=== PATIENT | female | born 1995 | race Caucasian/White ===

== ENCOUNTER 2020-02-09 00:36 | Outpatient (CLI) | payer OTHER, SELFPAY ==
[2020-02-09 18:58] LABS: SARS-CoV-2 RNA PCR Negative
== END 2020-02-09 00:37 | disposition home or self-care (01) ==
LOC: ANHCOVIDDT 00:37
PROVIDERS: PCP Family Medicine; Visit Provider Obstetrics & Gynecology
DX: Z01.812 Encounter for preprocedural laboratory examination (principal); Z20.828 Contact with and (suspected) exposure to other viral communicable diseases
CPT/HCPCS: 87635; C9803; U0003

== ENCOUNTER 2020-02-10 00:49 | Day surgery (SDC) | payer OTHER, SELFPAY ==
[2020-02-08 11:28] VITALS: BMI 26.6
[2020-02-10 11:23] VITALS: BP 114/79; PULSE 86; RESP 18; TEMP 36.8; O2SAT 100
[2020-02-10 11:28] VITALS: BMI 27.1
--- NOTE | 2020-02-10 11:44 | PM.IMHP ---
H&P: HPI History of Present Illness Chief complaint: Missed AB Narrative: Francisca Rodriguez is a 25 year old female presents with missed for suction curettage. Had ultrasound at 6 weeks which showed cardiac activity in uterine abnormality. At this point should be 12 weeks though earlier this week had ultrasound showed 9 week with no cardiac activity. Review of Systems Review of Systems: All systems reviewed & are unremarkable except as noted in HPI and below PMFSH Social History Social History Gender identity (if verbalized by the patient): Female Meds Home Medications and Allergies Home Medications Medication Instructions Recorded Confirmed Type ampicillin 500 mg PO Q6H 02/08/20 02/08/20 History sertraline 50 mg PO DAILY 02/08/20 02/08/20 History Allergies Allergy/AdvReac Type Severity Reaction Status Date / Time No Known Allergies Allergy Verified 02/08/20 11:23 Vital Signs Vital Signs - 24 hr 02/10/20 11:23 Temperature 36.8 C Pulse Rate 86 Respiratory Rate 18 Blood Pressure 114/79 Pulse Oximetry 100 Exam Const: General: no acute distress Resp: Auscultation: clear to auscultation bilaterally Cardio: Rate: regular rate Rhythm: regular rhythm GI: GI Palp: Yes Soft to palpation : Other: Uterus 8-10 week size. Assessment and Plan Assessment and plan (1) Missed : Code(s): O02.1 - Missed Status: Acute Additional Plan Suction curettage.
[2020-02-10] MEDS: LACTATED RINGERS 1,000 ML 30 ML IV CONT (11:45)
--- NOTE | 2020-02-10 12:01 | P.PNAN_ITS ---
Anes - Initial Pre Proc Eval Procedure: Operation Date: 02/10/20 12:45 Proposed Procedures p Suction Dilation and Curettage - Samy Chaidez MD Date/Time: 02/10/20 12:01 Surgeon: Samy Chaidez MD Pre Op Diagnosis: Missed AB Patient Data Age: 25 Gender: F Height: 5 ft 7 in Weight: 78.4 kg Last Vital Signs Temp 36.8 C 02/10/20 11:23 Pulse 86 02/10/20 11:23 Resp 18 02/10/20 11:23 BP 114/79 02/10/20 11:23 Pulse Ox 100 02/10/20 11:23 Allergies Allergy/AdvReac Type Severity Reaction Status Date / Time No Known Allergies Allergy Verified 02/08/20 11:23 Home Medications Medication Instructions Recorded Confirmed Type ampicillin 500 mg PO Q6H 02/08/20 02/08/20 History sertraline 50 mg PO DAILY 02/08/20 02/08/20 History ibuprofen 800 mg PO TID PRN #20 tablet 02/10/20 Rx Patient hx anesthesia problems: none Family hx anesthesia problems: none [facility] Past Medical History Medical History (Updated 02/10/20 @ 12:02 by Sandor Jha MD) Anxiety Social History Social History Gender identity (if verbalized by the patient): Female Anes - Eval Final PreProcedure Day of Procedure 02/10/20 12:01 Patient weight: overweight Heart: regular rate and rhythm Lungs: clear to auscultation Airway: Mallampati scale class II Neurological: alert and oriented Last oral intake: >/= 8 hours ASA classification: II Emergent: no Anesthetic plan: proceed Anesthesia type and monitoring: general GIVS Informed Consent: The patient's anesthetic plan and its attendant risks and benefits were discussed with the patient/family/POA. Questions were solicited and answers provided to the satisfaction of the patient/family/POA.
[2020-02-10] MEDS: KETOROLAC 30 MG/ML VIAL (*BKC) IV PUSH (12:38)
--- NOTE | 2020-02-10 12:51 | PM.OP ---
Procedure Note - Brief Procedure Note - Brief Date of procedure: 02/10/20 Pre-op diagnosis: Missed AB Post-op diagnosis: same Procedure performed: Suction curettage Description of procedure: Patient prepped in usual manner for this procedure. Cervix dilated to allow the 9mm suction curette replaced. Section current removed a moderate amount of products of conception. There is no significant bleeding at this point. This P at this point the procedure was considered terminated. Anesthesia: GLMA Surgeon: Samy Chaidez MD Estimated blood loss (mL): 50 Drains: No Packing: No Pathology: yes Complications: No immediate complications Condition: stable Disposition: PACU Findings: Moderate amount of products of conception.
[2020-02-10 12:55] VITALS: BP 101/56; PULSE 74; RESP 20
[2020-02-10 13:25] VITALS: BP 119/55; PULSE 76; RESP 12
[2020-02-10 13:55] VITALS: BP 121/71; PULSE 74; RESP 16
== END 2020-02-10 14:16 | disposition home or self-care (01) ==
PROVIDERS: PCP Family Medicine; Visit Provider Obstetrics & Gynecology
PROC: (CPT 59820; principal; 2020-02-10 12:45)
DX: O02.1 Missed abortion (principal)
CPT/HCPCS: 59820; 36415; 85461; 88305; A9270; J1885; J2250; J2704; J3010; J7030; J7120

== ENCOUNTER 2021-08-28 15:02 | Outpatient (CLI) | payer OTHER, SELFPAY ==
--- NOTE | ~2021-08-28 | US_ITS ---
US OB <= 14 weeks fetus DATE: 08/28/2021 15:41 INDICATION: Irregular menstruation TECHNIQUE: Real-time imaging, color flow imaging, Doppler COMPARISON: None FINDINGS: The uterus measures 9.0 cm height, 4.0 cm AP and 6.0 cm transverse dimension. There is a li ve single intrauterine gestation, with normal surrounding hyperechogenicity consistent with decidual reaction. A pole is identified with heart rate of 130 bpm. Annex-rump length averages 0.9 cm, consistent with 6 weeks 6 days +/- 4 days estimated gestational ag e and MICHAEL of 04/17/2022. Left ovary measures 2.5 x 1.5 x 2.5 cm, with vascular flow. Right ovary is not as well demonstrated, measures approximately 1.6 x 1.8 cm, with vascular flow. No pelvic mass or abnormal free pelvic fluid collection is noted. IMPRESSION: Early intrauterine gestation, estimated gestational age 6 weeks 6 days +/- 4 days; MICHAEL: Reviewed, dictated and finalized at [facility]. Reviewed, dictated and finalized at [facility]. [employer] IMPRESSION: Early intrauterine gestation, estimated gestational age 6 weeks 6 d ays +/- 4 days; MICHAEL: 04/17/2022
== END 2021-08-28 15:03 | disposition home or self-care (01) ==
LOC: ANHIMG 15:10
PROVIDERS: Visit Provider Obstetrics & Gynecology
DX: Z34.91 Encounter for supervision of normal pregnancy, unspecified, first trimester (principal); Z3A.01 Less than 8 weeks gestation of pregnancy
CPT/HCPCS: 76801

== ENCOUNTER 2021-08-31 12:02 | Emergency (ER) | payer OTHER, SELFPAY ==
--- NOTE | ~2021-08-31 | US_ITS ---
EXAMINATION: US renal BI DATE: 08/31/2021 15:43 INDICATION: Kidney stone. Pain. TECHNIQUE: Multiple ultrasound grayscale images of the kidneys were obtained. COMPARISON: None. FINDINGS: The right kidney measures 10.9 x 5.8 x 5.2 cm. The left kidney measures 12.4 x 6.2 x 6.1 cm. The kidn eys demonstrate normal parenchymal echogenicity. There is no hydronephrosis. The bladder is not well distended. IMPRESSION: 1. Normal kidneys. No hydronephrosis. Reviewed, dictated and finalized at [facility]. [employer]
[2021-08-31 12:10] VITALS: PULSE 87; RESP 18; TEMP 36.7; O2SAT 100
[2021-08-31 16:21] LABS: Add Urine Microscopic? YES; Appearance Urine Clear (Clear); Bilirubin Urine Negative (Negative); Blood Urine 1+ (Negative); Color Urine Yellow (Yellow); Glucose Urine UA Negative (Negative); Ketones Urine Negative (Negative); Leukocyte Esterase Ur Negative LEU/UL (Negative); Nitrate Urine Negative (Negative); Protein Urine Negative (Negative); Specific Grav Ur 1.016 (1.001-1.035); Squamous Epithelial Cell Urine Many /hpf (Few); Urobilinogen Urine Negative mg/dL (<2.0); WBC Urine 0-3 /hpf
--- NOTE | 2021-08-31 17:29 | ED.GENADULT ---
HPI - General Adult General Chief complaint: Back Pain/Injury Stated complaint: back pain, kidney stones? Time Seen by Provider: 08/31/21 14:22 Source: patient Mode of arrival: ambulatory Limitations: no limitations History of Present Illness HPI narrative: Patient is 26-year-old female G3, P1 7 weeks , presents with chief complaint of right flank pain over the past week. Patient reports that she was seen at the urgent care and treated for urinary tract infection after a small amount of blood being noted in her urine analysis. She was called and told the urine culture was negative for bacterial growth so she contacted her PERSONAL INVESTMENT ADVISER and was instructed to come to the emergency department to rule out kidney stone. Patient reports she has had compartment or uterine . Patient denies vaginal bleeding or discharge. Patient denies dysuria or notable hematuria. Patient denies fever and chills. She reports occasional nausea and vomiting morning which has been associated with her . Patient denies fevers and chills, shortness of breath or chest pain. Patient denies history of kidney stones. Related Data Home Medications Medication Instructions Recorded Confirmed ampicillin 500 mg PO Q6H 02/08/20 02/10/20 sertraline 50 mg PO DAILY 02/08/20 02/10/20 Allergies Allergy/AdvReac Type Severity Reaction Status Date / Time No Known Allergies Allergy Verified 08/31/21 14:05 Review of Systems Review of Systems: CONSTITUTIONAL: Denies fever, chills, or sweats. EYES: Denies visual changes, redness, or discharge. ENT: Denies rhinorrhea, congestion, sore throat, or otalgia. CARDIOVASCULAR: Denies chest pain, palpitations, or edema. RESPIRATORY: Denies cough or dyspnea. GASTROINTESTINAL: Denies abdominal pain, nausea, vomiting, or diarrhea. GENITOURINARY: Reports right flank pain denies dysuria or hematuria. SKIN: Denies rash or itching. MUSCULOSKELETAL: Denies back pain, joint pain, or myalgia. NEUROLOGIC: Denies headache, numbness, dizziness, or weakness. PSYCHIATRIC: Denies anxiety or depression. [facility] Past Medical History Medical History (Updated 08/31/21 @ 17:35 by Sarah Oro PA-C) Anxiety Social History Social History Gender identity (if verbalized by the patient): Female Exam Narrative: GENERAL: Well-appearing, well-nourished, and in no acute distress. Nontoxic in appearance. Patient smiling and talking normally. Patient ambulating without issue. Patient not vomiting or showing any signs of discomfort. HEAD: Normocephalic, atraumatic. EYES: PERRLA and EOMI. CHEST: Tenderness to palpation of the right flank area. Clear to auscultation. No respiratory distress. No wheezes rales or rhonchi HEART: Regular rate and rhythm. No murmur heard. Normal peripheral pulses. ABDOMEN: Soft, nontender, nondistended, normal active bowel sounds. EXTREMITIES: Normal range of motion. No edema. SKIN: Warm, dry, no rash. NEURO: No focal deficits. Alert and oriented x3. PSYCH: Normal mood and affect. Course Vital Signs Vital signs: Vital Signs Temperature 98.0 F 08/31/21 12:10 Pulse Rate 87 08/31/21 12:10 Respiratory Rate 18 08/31/21 12:10 Pulse Oximetry 100 08/31/21 12:10 Temperature 98.0 F 08/31/21 12:10 Pulse Rate 87 08/31/21 12:10 Respiratory Rate 18 08/31/21 12:10 Pulse Oximetry 100 08/31/21 12:10 Medical Decision Making MDM Narrative Medical decision making narrative: Patient declined nausea and pain medications in emergency department. Patient has very small amount of blood noted in her urine. Patient denies dysuria. Patient denies noting blood with wiping. Patient reports she has had compartment a uterine and denies any pelvic cramping or vaginal bleeding. Consult with Dr. Patten PERSONAL INVESTMENT ADVISER on-call for patient's PERSONAL INVESTMENT ADVISER Dr. Chaidez. She states the patient should not have KUB or CT abdomen pelvis but instead a renal ultrasound
[2021-08-31 17:55] VITALS: BP 130/76; PULSE 85; RESP 18; O2SAT 100
== END 2021-08-31 17:57 | disposition home or self-care (01) ==
PROVIDERS: Physician Assistant; Emergency Provider Family Medicine
DX: O26.891 Other specified pregnancy related conditions, first trimester (principal); M54.9 Dorsalgia, unspecified; O99.341 Other mental disorders complicating pregnancy, first trimester; F41.9 Anxiety disorder, unspecified
CPT/HCPCS: 76775; 81001; 99283; 99284

== ENCOUNTER 2021-12-29 13:28 | Outpatient (CLI) | payer OTHER, SELFPAY | END 2021-12-29 13:29 | disposition home or self-care (01) | LOC: ANHLAB 13:29 | PROVIDERS: Visit Provider Obstetrics & Gynecology | DX: N39.0 Urinary tract infection, site not specified (principal) | CPT/HCPCS: 87086; 87088 ==

== ENCOUNTER 2022-02-05 09:54 | Outpatient (CLI) | payer OTHER, SELFPAY ==
[2022-02-05 10:28] LABS: Basophils Absolute Auto 0.1 K/mm3 (0.0-0.1); Basophils Percent Auto 0.5 % (0.2-1.2); Eosinophils Absolute Auto 0.1 K/mm3 (0-0.3); Eosinophils Percent Auto 0.6 % (0-4.4); Hematocrit 31.9 % (37.0-47.0); Hemoglobin 9.8 g/dL (12.0-15.0); Immature Granulocyte Absolute 0.56 K/mm3 (0.00-0.031); Immature Granulocyte Percent A 3.4 % (0-0.5); Lymphocytes Percent Auto 18.6 % (18.3-44.2); Mean Corpuscular HGB Conc 30.7 g/dl (32-36); Mean Corpuscular Hemoglobin 25.5 pg (26-34); Mean Corpuscular Volume 82.9 fl (80-100); Monocytes Absolute Auto 1.8 K/mm3 (0.1-0.6); Monocytes Percent Auto 10.8 % (2.6-8.5); Neutrophils Percent Auto 66.1 % (45.5-73.1); Platelet Count Result 269 k/mm3 (150-375); Red Blood Count 3.85 M/mm3 (4.2-5.4); Red Cell Distribution Width 14.6 % (11.5-14.5); White Blood Count 16.7 K/mm3 (4.5-10.0)
[2022-02-05 11:15] LABS: HIV 1/2 Ab P24 Ag Result Negative (Negative)
[2022-02-05 11:39] LABS: Glucose 1 Hour PP 50gm Dose 145 mg/dL
== END 2022-02-05 09:55 | disposition home or self-care (01) ==
LOC: ANHLAB 09:56
PROVIDERS: Visit Provider Obstetrics & Gynecology
DX: Z34.90 Encounter for supervision of normal pregnancy, unspecified, unspecified trimester (principal)
CPT/HCPCS: 36415; 82947; 85025; 86703; G0432

== ENCOUNTER 2022-02-22 07:15 | Outpatient (CLI) | payer OTHER, SELFPAY ==
[2022-02-22 08:12] LABS: Glucose Fasting Gestational 101 mg/dL (>/=95)
[2022-02-22 10:25] LABS: Glucose 1 Hour Gest 134 mg/dL (>/=180)
[2022-02-22 10:42] LABS: Glucose 2 Hour Gest 143 mg/dL (>/= 155)
[2022-02-22 11:16] LABS: Ferritin 4.93 ng/mL (6.24-137)
[2022-02-22 11:48] LABS: Glucose 3 Hour Gest 79 mg/dL (>/=140)
== END 2022-02-22 07:16 | disposition home or self-care (01) ==
PROVIDERS: Visit Provider Obstetrics & Gynecology
DX: O99.810 Abnormal glucose complicating pregnancy (principal); Z3A.31 31 weeks gestation of pregnancy
CPT/HCPCS: 36415; 82728; 82951; 82952

== ENCOUNTER 2022-03-19 16:34 | Outpatient (RCR) | payer OTHER, SELFPAY ==
[2022-03-19 18:12] VITALS: BP 120/70; PULSE 111
== END 2022-04-13 14:57 | disposition home or self-care (01) ==
LOC: ANHOBOP 16:34
PROVIDERS: Visit Provider Obstetrics & Gynecology
DX: O36.8130 Decreased fetal movements, third trimester, not applicable or unspecified (principal); Z3A.35 35 weeks gestation of pregnancy
CPT/HCPCS: 59025

== ENCOUNTER 2022-04-13 03:23 | Inpatient (IN) | payer OTHER, SELFPAY ==
[2022-04-13] VITALS (86 sets, daily range): BP systolic 77–157; BP diastolic 46–131; PULSE 69–125; RESP 20; TEMP 36.6–37.3; O2SAT 92–100; BMI 33.8
--- OUTSIDE RECORDS SUMMARY | 2022-04-13 03:40 | XMS_ITS ---
:1995 Author Care Team Providers Name Role Phone BOOM CHAMBERS MD Primary Care Provider [phone] Allergies Code Code System Name Reaction Severity Status Onset NKDA ? Notes: Some allergies listed in Docume nts: #[id number], #[id number] could not be added to this patient's chart. Please review thes e documents and add these allergies to the patient's chart manually as needed. Medications Name Status Start Date Stop Date ? ? acyclovir 400 mg tablet Unknown ? Not avai lable amitriptyline 25 mg tablet Completed ? 06/16 amoxicillin 500 mg capsule Completed ? 01/31 TK 1 C PO BID WF OR MILK amoxicillin 875 mg-potassium clavulanate 125 mg tablet Completed ? 10/16/2016 ampicillin 500 mg capsule Completed ? 2019 TK ONE C PO Q 6 H FOR 7 DAYS clomiphene citrate 50 mg tablet Unknown ? Not available Take 1 tablet every day by oral route. take days 3-7 of cycle/intercourse days 12,14,16 COVID-19 test specimen collection Active ? Not available TEST DIRECTED TODAY fluoxetine 10 mg capsule Completed ? 020 fluoxetine 20 mg capsule Active ? Not fadumo ilable TAKE 1 CAPSULE BY MOUTH EVERY DAY fluticasone propionate 50 mcg/actuation nasal Completed ? 10/16/2016 spray,suspension Lidocaine Viscous 2 % mucosal solution Completed ? 02/01/2020 SWISH AND SPIT 5 ML PO Q 4 H PRF TOOTH PAIN loratadine 10 mg tablet Completed ? 10/19/19 20 meloxicam 15 mg tablet Completed ? 0 TK 1 T PO D WF OR MILK. DO NOT TK ANY IBUPROFEN OR ALEVE WITH T HIS MEDICINE metoclopramid
--- OUTSIDE RECORDS SUMMARY | 2022-04-13 03:40 | XMS_ITS ---
:1995 Author Care Team Providers Name Role Phone BOOM CHAMBERS MD Primary Care Provider [phone] Allergies Code Code System Name Reaction Severity Status Onset NKDA ? Notes: Some allergies listed in Docume nts: #[id number], #[id number] could not be added to this patient's chart. Please review thes e documents and add these allergies to the patient's chart manually as needed. Medications Name Status Start Date Stop Date ? ? acyclovir 400 mg tablet Unknown ? Not avai lable amitriptyline 25 mg tablet Completed ? 06/16 amoxicillin 500 mg capsule Active ? Not a vailable TK 1 C PO Q 8 H amoxicillin 875 mg-potassium clavulanate 125 mg tablet Completed ? 10/16/2016 ampicillin 500 mg capsule Active ? Not av ailable cephalexin 500 mg capsule Completed ? 2020 TAKE 1 CAPSULE PO EVERY 12 HOURS FOR 10 DAYS clomiphene citrate 50 mg tablet Completed ? 02/01/2020 TAKE 1 TABLET BY MOUTH EVERY DAY COVID-19 test specimen collection Active ? Not available TEST DIRECTED TODAY fluconazole 150 mg tablet Completed ? 2020 TK 1 T PO Q WEEK fluoxetine 10 mg capsule Completed ? 020 fluoxetine 20 mg capsule Completed ? 021 TAKE 1 CAPSULE BY MOUTH EVERY DAY fluticasone propionate 50 mcg/actuation nasal Completed ? 10/16/2016 spray,suspension Lidocaine Viscous 2 % mucosal solution Completed ? 02/01/2020 SWISH AND SPIT 5 ML PO Q 4 H PRF TOOTH PAIN loratadine 10 mg tablet Completed ? 10/19/19 20 meloxicam 15 mg tablet Completed ? 0
--- NOTE | 2022-04-13 03:45 | LDADM ---
This patient, Francisca Perez, was admitted to Labor/Delivery/Recovery 105 on 04/13/22 at 03:23. Plans for labor, pain management and were discussed with patient. Patient/family oriented to hospital policies and general routines including ID bracelet, bed and alarms, visiting hours, pain management, procedures, bathroom and other care routines, personal items, smoking policy, room service/diet and guest tray routines, infant security routines, and visiting hours. Patient/Family are encouraged to report perceived risks to care and to ask questions if they do not understand what they are told or what they should do. See OBIX for further documentation.
[2022-04-13 04:36] LABS: Basophils Absolute Auto 0.1 K/mm3 (0.0-0.1); Basophils Percent Auto 0.3 % (0.2-1.2); Eosinophils Absolute Auto 0.1 K/mm3 (0-0.3); Eosinophils Percent Auto 0.8 % (0-4.4); Hematocrit 28.7 % (37.0-47.0); Hemoglobin 8.2 g/dL (12.0-15.0); Immature Granulocyte Absolute 0.35 K/mm3 (0.00-0.031); Immature Granulocyte Percent A 2.2 % (0-0.5); Lymphocytes Absolute Auto 2.92 K/mm3 (0.9-3.2); Lymphocytes Percent Auto 18.5 % (18.3-44.2); Mean Corpuscular HGB Conc 28.6 g/dl (32-36); Mean Corpuscular Hemoglobin 20.7 pg (26-34); Mean Corpuscular Volume 72.3 fl (80-100); Mean Platelet Volume 10.8 fl (7.4-10.4); Monocytes Absolute Auto 1.6 K/mm3 (0.1-0.6); Monocytes Percent Auto 9.8 % (2.6-8.5); Neutrophils Absolute Auto 10.8 K/mm3 (1.3-6.7); Neutrophils Percent Auto 68.4 % (45.5-73.1); Nucleated Red Blood Cells Perc 0.3 % (0.0-0.2); Platelet Count Result 277 k/mm3 (150-375); Red Blood Count 3.97 M/mm3 (4.2-5.4); Red Cell Distribution Width 18.3 % (11.5-14.5); White Blood Count 15.8 K/mm3 (4.5-10.0)
[2022-04-13 04:48] LABS: Hypochromasia 1+ (NORMAL); Microcytosis 1+ (NORMAL); Platelet Estimate Adequate (Adequate)
[2022-04-13 04:49] LABS: Stomatocytes 1+ (NORMAL)
[2022-04-13 04:52] LABS: Amphetamine Screen Urine Negative (Negative); Barbiturate Screen Urine Negative (Negative); Benzodiazepines Screen Urine Negative (Negative); Cannabinoid Screen Urine Positive (Negative); Cocaine Screen Urine Negative (Negative); Methadone Screen Urine Negative (Negative); Opiate Screen Urine Negative (Negative); Phencyclidine Screen Urine Negative (Negative)
[2022-04-13] MEDS: LACTATED RINGERS 1,000 ML 125 ML IV CONT (04:58)
[2022-04-13] MEDS: OXYTOCIN 30 UNITS/NS 500 ML 30 UNITS/500 ML BAG IV CONT (04:58)
[2022-04-13 06:53] LABS: Rapid Plasma Reagin Non-Reactive (NonReactive)
--- NOTE | 2022-04-13 07:17 | WPDANESEPPF ---
Anes - Initial Pre Proc Eval Date/Time: 04/13/22 07:17 Surgeon: Samy Chaidez MD Pre Op Diagnosis: Leaking Patient Data Age: 27 Gender: F Height: 1.7 m Weight: 98 kg Last Vital Signs Temp 37.0 C 04/13/22 06:11 Pulse 110 H 04/13/22 07:11 BP 139/53 L 04/13/22 07:11 Pulse Ox 99 04/13/22 06:57 O2 Del Method Room Air 04/13/22 04:05 Allergies Allergy/AdvReac Type Severity Reaction Status Date / Time No Known Allergies Allergy Verified 04/13/22 04:34 Home Medications Medication Instructions Recorded Confirmed Type vitamins-iron fumarate 65 1 tablet PO DAILY 12/19/21 04/13/22 History mg iron-folic acid 1 mg tablet acyclovir 400 mg tablet 400 mg PO BID #60 tabs 03/12/22 04/13/22 Rx sertraline 50 mg tablet 50 mg PO DAILY #90 tabs 03/26/22 04/13/22 Rx Laboratory Tests 04/13/22 04/13/22 04/13/22 04:02 04:02 04:02 WBC 15.8 K/mm3 H K/mm3 (4.5-10.0) RBC 3.97 M/mm3 L M/mm3 (4.2-5.4) Hgb 8.2 g/dL L g/dL (12.0-15.0) Hct 28.7 % L % (37.0-47.0) MCV 72.3 fl L fl (80-100) MCH 20.7 pg L pg (26-34) MCHC 28.6 g/dl L g/dl (32-36) RDW 18.3 % H % (11.5-14.5) Plt Count 277 k/mm3 k/mm3 (150-375) MPV 10.8 fl H fl (7.4-10.4) Immature Gran % (Auto) 2.2 % H % (0-0.5) Neut % (Auto) 68.4 % % (45.5-73.1) Lymph % (Auto) 18.5 % % (18.3-44.2) Centre % (Auto) 9.8 % H % (2.6-8.5) Eos % (Auto) 0.8 % % (0-4.4) Baso % (Auto) 0.3 % % (0.2-1.2) Lymph # (Auto) 2.92 K/mm3 K/mm3 (0.9-3.2) Centre # (Auto) 1.6 K/mm3 H K/mm3 (0.1-0.6) Eos # (Auto) 0.1 K/mm3 K/mm3 (0-0.3) Baso # (Auto) 0.1 K/mm3 K/mm3 (0.0-0.1) Abs Immat Gran (auto) 0.35 K/mm3 H K/mm3 (0.00-0.031) Absolute Neuts (auto) 10.8 K/mm3 H K/mm3 (1.3-6.7) Absolute Nucleated RBC 0.0 K/mm3 K/mm3 (0.0-0.012) Nucleated RBC % 0.3 % H % (0.0-0.2) Platelet Estimate Adequate (Adequate) Hypochromasia 1+ (NORMAL) Microcytosis 1+ (NORMAL) Stomatocytes 1+ (NORMAL) Urine Opiates Screen Urine Methadone Screen Ur Barbiturates Screen Ur Phencyclidine Scrn Ur Amphetamine Screen U Benzodiazepines Scrn Urine Cocaine Screen U Cannabinoids Screen RPR Non-reactive (NonReactive) Blood Type B Positive Antibody Screen Negative 04/13/22 04:02 WBC RBC Hgb Hct MCV MCH MCHC RDW Plt Count MPV Immature Gran % (Auto) Neut % (Auto) Lymph % (Auto) Centre % (Auto) Eos % (Auto) Baso % (Auto) Lymph # (Auto) Centre # (Auto) Eos # (Auto) Baso # (Auto) Abs Immat Gran (auto) Absolute Neuts (auto) Absolute Nucleated RBC Nucleated RBC % Platelet Estimate Hypochromasia Microcytosis Stomatocytes Urine Opiates Screen Negative (Negative) Urine Methadone Screen Negative (Negative) Ur Barbiturates Screen Negative (Negative) Ur Phencyclidine Scrn Negative (Negative) Ur Amphetamine Screen Negative (Negative) U Benzodiazepines Scrn Negative (Negative) Urine Cocaine Screen Negative (Negative) U Cannabinoids Screen Positive A (Negative) RPR Blood Type Antibody Screen Patient hx anesthesia problems: none Family hx anesthesia problems: none Results Review: All pre-operative results and documents have been reviewed as part of the pre-operative evaluation. [facility] Past Medical History Medical History Abnormal glucose tolerance in
--- NOTE | 2022-04-13 07:42 | PM.IMHP ---
H&P: HPI History of Present Illness Date/Time: 04/13/22 07:42 Chief Complaint: leakage of fluid since 1230a Narrative: Francisca is a 27yo @ 39.3wks (MICHAEL 04/17/22) who presented to L&D w/ leakage of clear fluid since 1230a. She reports cramping pains. She denies bleeding. Reports good movement. Her is complicated by: - HSV on ppx; no lesions - Anemia - Elevated 1hr glucose; normal 3 hour - Anxiety on zoloft Review of Systems Review of Systems: All systems reviewed & are unremarkable except as noted in HPI and below PMFSH Past Medical History Medical History Abnormal glucose tolerance in Anxiety Constipation Encounter for screening examination for sexually transmitted disease Herpes HSV 2 Incomplete miscarriage 02/10/20 suction d&c Migraines OTC PRN UTI (urinary tract infection) Surgical History Surgical History Hx of tonsillectomy 2003 Family History Family History Other Diabetes mellitus maternal uncle Grandparent Acute myocardial infarction maternal grandmother paternal grandmother Breast cancer paternal grandmother Diabetes mellitus Son Autism Social History Social History Smoking packs per day: 0.5 Smoking cigarettes per day: 10.0 Years smoked: 10 Smoking pack-years: 5.00 Smoking status: Current every day smoker Tobacco type: cigarettes Second hand tobacco smoke exposure: Yes Substance use: current Last use: last time 03/20/22 Gender identity (if verbalized by the patient): Female Spiritual care concerns: No Meds Home Medications and Allergies Home Medications Medication Instructions Recorded Confirmed Type vitamins-iron fumarate 65 1 tablet PO DAILY 12/19/21 04/13/22 History mg iron-folic acid 1 mg tablet acyclovir 400 mg tablet 400 mg PO BID #60 tabs 03/12/22 04/13/22 Rx sertraline 50 mg tablet 50 mg PO DAILY #90 tabs 03/26/22 04/13/22 Rx Allergies Allergy/AdvReac Type Severity Reaction Status Date / Time No Known Allergies Allergy Verified 04/13/22 04:34 Vital Signs Vital Signs - 24 hr 04/13/22 04:29 04/13/22 04:31 04/13/22 04:45 Temperature Pulse Rate 119 H 113 H 113 H Blood Pressure 148/85 H 136/85 134/66 Pulse Oximetry Oxygen Delivery 04/13/22 05:00 04/13/22 05:01 04/13/22 05:15 Temperature 99.2 F Pulse Rate 109 H 104 H Blood Pressure 131/72 132/82 Pulse Oximetry Oxygen Delivery 04/13/22 05:30 04/13/22 05:47 04/13/22 06:01 Temperature Pulse Rate 106 H 108 H 110 H Blood Pressure 122/70 135/58 L 151/54 H Pulse Oximetry Oxygen Delivery 04/13/22 06:11 04/13/22 06:42 04/13/22 06:46 Temperature 98.6 F Pulse Rate 124 H 112 H Blood Pressure 156/76 H 157/112 H Pulse Oximetry 100 Oxygen Delivery 04/13/22 06:47 04/13/22 06:51 04/13/22 06:52 Temperature Pulse Rate 110 H 114 H Blood Pressure 139/59 L 136/92 H Pulse Oximetry 100 100 Oxygen Delivery 04/13/22 06:53 04/13/22 06:54 04/13/22 06:56 Temperature Pulse Rate 109 H 118 H 119 H Blood Pressure 110/79 104/65 121/55 L Pulse Oximetry Oxygen Delivery 04/13/22 06:57 04/13/22 06:59 04/13/22 07:01 Temperature Pulse Rate 114 H 118 H Blood Pressure 139/55 L 130/46 L Pulse Oximetry 99 Oxygen Delivery 04/13/22 07:05 04/13/22 07:11 04/13/22 07:21 Temperature Pulse Rate 115 H 110 H 120 H Blood Pressure 121/61 139/53 L 145/62 H Pulse Oximetry Oxygen Delivery 04/13/22 07:27 04/13/22 07:31 04/13/22 07:32 Temperature Pulse Rate 113 H Blood Pressure 114/61 Pulse Oximetry 100 100 Oxygen Delivery 04/13/22 07:37 04/13/22 04:05 Temperature Pulse Rate Blood Pressure Pulse O
[2022-04-13] MEDS: ONDANSETRON INJ 4 MG/2 ML VIAL IV PUSH (07:43)
--- NOTE | 2022-04-13 07:50 | WPDHPUPDATE1 ---
History and Physical Update Update Date/Time: 04/13/22 07:50 History and Physical has been reviewed, including an updated exam of the patient. There are NO changes in the patient's condition. Risks, benefits, and alternatives have been discussed and questions answered. Patient agrees to proceed with procedure.
--- NOTE | 2022-04-13 15:51 | P.PCNOB_ITS ---
OB - Delivery Note Procedure Delivery augmentation: Pitocin Delivery monitor: External FHT and External Uterine Route of delivery: Episiotomy description: None Laceration Description: None Specimen: Yes ( placenta) Quantitative Blood Loss (ml): 300 Anesthesia type: Epidural Disposition: Floor Complications: none Narrative: patient prepped and draped usual manner for this procedure. Maternal expulsive efforts readily delivered vertex with nuchal cord noted. Rest baby was delivered without difficulty and the nuchal cord was reduced. Cord clamped and cut and placenta delivered spontaneously. Cervix vagina vulva were inspected w ith no lacerations or tears. Uterus was well contracted with minimal bleeding. The immediate postoperative condition of mother and baby were both excellent. Baby Weeks of gestation at delivery: 39 gender: Female Weight (pounds): 7 Weight (ounces): 8 presentation: vertex Placenta delivery description: Spontaneous Cord Vessel Description: 3 Vessels score one minute: 8 score five minutes: 9 AMG Delivery Billing Delivery Delivery: Delivery Charge
--- NOTE | 2022-04-13 15:51 | WPDHPUPDATE1 ---
History and Physical Update Update Date/Time: 04/13/22 15:51 History and Physical has been reviewed, including an updated exam of the patient. There are NO changes in the patient's condition. Risks, benefits, and alternatives have been discussed and questions answered. Patient agrees to proceed with procedure.
--- NOTE | 2022-04-13 15:51 | WPDOBADMIT ---
Obstetrics - Admit Note Admission Note: record reviewed. No pertinent additions to the history and/or any subsequent changes in the physical findings that are not consistent with the expected course of the were found. Additions to the history and/or subsequent changes in the physical findings follow. None.
[2022-04-13] MEDS: OXYTOCIN 30 UNITS/NS 500 ML 30 UNITS/500 ML BAG 125 UNITS IV CONT (16:11)
[2022-04-13] MEDS: IBUPROFEN 600 MG TABLET PO (17:52)
[2022-04-13] MEDS: WITCH HAZEL 40 PADS 1 PAD TOPICAL (18:15)
[2022-04-13] MEDS: BENZOCAINE 20% AER SPR (*SP) 56 GM CAN 1 SPRAY TOPICAL (18:16)
--- NOTE | 2022-04-13 19:15 | PC.NURSE ---
Patient transferred to post room #282 per wheelchair from labor and delivery. Support person present. Oriented to unit, room, information board, rooming in, admission packet and security measures. Patient verbalizes understanding.
[2022-04-13] MEDS: DOCUSATE SODIUM 100 MG CAPSULE PO (22:07)
[2022-04-13] MEDS: POLYSACCHARIDE IRON COMPLEX 150 MG CAPSULE PO (22:07)
[2022-04-13] MEDS: ACETAMINOPHEN 325 MG TABLET 650 MG PO (22:16)
--- NOTE | 2022-04-13 23:00 | PC.NURSE ---
Patient refuses last 200ml of pitocin due to discomfort and cramping. Educated on what to look for as far as excessive bleeding and signs of hemorrhage. Patient is low risk for hemorrhage.
[2022-04-14 01:40] VITALS: BP 135/73; PULSE 98; RESP 14; TEMP 36.6; O2SAT 100
[2022-04-14 05:05] VITALS: BP 146/70; PULSE 98; RESP 20; TEMP 36.8
[2022-04-14] MEDS: IBUPROFEN 600 MG TABLET PO (05:10)
[2022-04-14 05:45] LABS: Hematocrit 28.6 % (37.0-47.0); Hemoglobin 7.8 g/dL (12.0-15.0)
[2022-04-14] MEDS: ACETAMINOPHEN 325 MG TABLET 650 MG PO (08:22)
[2022-04-14] MEDS: DOCUSATE SODIUM 100 MG CAPSULE PO (08:23)
[2022-04-14] MEDS: POLYSACCHARIDE IRON COMPLEX 150 MG CAPSULE PO (08:23)
[2022-04-14] MEDS: SERTRALINE HCL 50 MG TABLET PO (08:23)
[2022-04-14 08:30] VITALS: BP 123/77; PULSE 85; RESP 18; TEMP 36.4
--- NOTE | 2022-04-14 09:51 | PM.OBPNVD ---
OB - PN: Subj Subjective Date/time seen: 04/14/22 09:51 Patient comments: no complaints and pain well controlled baby status: doing well [place] feeding status: exclusively bottle feeding OB - PN: Obj Data Labs CBC & Chem 7: 04/14/22 05:09 Labs: Laboratory Results - last 24 hr 04/14/22 05:09 Hgb 7.8 L Hct 28.6 L OB - PN A/P Plan day: 1 Plan: routine care, discharge home, follow up 6 weeks and other (plans Xulane patch) Time Spent With Patient Time: Total time spent is greater than 50% in coordination of care (as documented) at patient's floor/unit and/or counseling patient: Exam : Bimanual exam- vagina & uterus: other (Uterus firm, nt @U)
--- NOTE | 2022-04-14 12:20 | PC.NURSE ---
Patient viewed the discharge video Mother & Baby Care, The First Two Weeks . Patient was given the opportunity and encouraged to ask questions. Patient verbalized understanding of information shared and has been given the mother/baby guide for home reference.
[2022-04-14 12:30] VITALS: BP 137/87; PULSE 94; RESP 18; TEMP 36.6; O2SAT 99
[2022-04-16 09:25] VITALS: BP 128/75; PULSE 98; RESP 20; TEMP 37.1; O2SAT 100
--- NOTE | 2022-04-20 09:01 | PM.OBDSVD ---
DS: Admitting Diagnosis Discharge Date 04/14/22 Admitting Diagnosis OB - DS: Summary OB Procedures : None OB Procedures Intrapartum: Spontaneous Vag Delivery OB Procedures: : None Time Spent with Patient Time attestation: Total time spent providing and/or coordinating discharge services: DS: Data Data Completed and Pending Completed studies during hospitalization: Pending at discharge 04/13/22 16:15 Surgical [PTH] Routine Discharge Plan Discharge Attending physician on discharge: Samy Chaidez Consulting providers: Douglas Arce ; Tawana Silva Discharging Clinician: Tawana Silva Anticipated Discharge Date/Time: 04/14/22 09:55 Patient Disposition: Home, Self-Care Activity: may shower and pelvic rest Diet: regular Discharge Instructions: Education: Mom and Baby Guide Given to: Mother Follow-Up: Call your delivering provider's office for an appointment to be seen in: 6 Weeks Mom and baby should come to the [facility] for the follow-up appointment. Appointment Date/Time: April 16, 2022 at 9:00 am What to expect at your follow-up visit: Blood Pressure Check Physical Assessment Call [phone] if you are unable to keep your appointment time. BREAST CARE: * Wear a snug supportive bra. * Bottle Feeding: * May apply ice packs PERINEAL CARE: * Until bleeding stops, use your volodymyr bottle after urinating * Change your pad frequently throughout the day * You may take sitz baths several times a day (fill your bathtub with warm water and soak for 20 minutes.) Do NOT bathe in the water * No tub baths until seen by your physician - You may shower ACTIVITY: * Rest as much as possible. * Do not exercise or lift anything heavier than your baby (such as laundry or other children.) * Avoid stairs or driving as much as possible. * Do not put anything into the vagina. No douching, tampons, or sexual activity until seen by physician. NOTIFY PHYSICIAN IF YOU HAVE ANY QUESTIONS OR IF ANY OF THE FOLLOWING SYMPTOMS OCCUR: * If your perineum becomes red, swollen, or more painful than what you have experienced in the hospital. * If your vaginal bleeding becomes foul smelling. * If your vaginal bleeding becomes more heavy than a period or if your bleeding changes from pink to bright red. However, you may pass an occasional walnut-sized clot once or twice for the first week . * If you experience a sharp, shooting pain in you calves. * If you discover a hard, reddened area on your breast or if you experience flu-like symptoms. DIET: * Eat regular, well-balanced meals. * Drink plenty of fluids daily. If , drink to thirst. Patient Instructions: Antibiotic Form, How to Stop Smoking (GEN) Stand Alone Forms: General Discharge Information Follow-up/Referrals: Samy Chaidez MD [Physician] - 6 Weeks Discharge Medications: New Xulane 150-35 mcg/24 hr patch weekly 1 patch transdermal WEEKLY Qty: 3 1RF Rx Instructions: Start in 3 weeks apply once weekly for 3 weeks of a 4-week cycle Continued vit-iron fum-folic ac 65 mg iron- 1 mg tablet 1 tablet PO DAILY acyclovir 400 mg tablet 400 mg PO BID Qty: 60 0RF sertraline 50 mg tablet 50 mg PO DAILY Qty: 90 0RF Date of admission: 04/13/22 03:23 Primary Care Provider: Brijesh,Yane Bustos Admitting Provider: Samy Chaidez Attending physician on admission: Samy Chaidez Condition: Stable
== END 2022-04-14 17:01 | disposition home or self-care (01) | DRG 560 ==
LOC: ANHLDR 03:53 → ANHOB2 19:31
PROVIDERS: Obstetrics & Gynecology; Admitting Provider Obstetrics & Gynecology; PCP Family Medicine; Visit Provider Obstetrics & Gynecology
DX: O98.52 Other viral diseases complicating childbirth (principal); B00.9 Herpesviral infection, unspecified; O99.02 Anemia complicating childbirth; O99.344 Other mental disorders complicating childbirth; F41.9 Anxiety disorder, unspecified; O99.334 Smoking (tobacco) complicating childbirth; F17.210 Nicotine dependence, cigarettes, uncomplicated; O69.81X0 Labor and delivery complicated by cord around neck, without compression, not applicable or unspecified; Z3A.39 39 weeks gestation of pregnancy; Z37.0 Single live birth
CPT/HCPCS: 36415; 80307; 85014; 85018; 85025; 86592; 86850; 86900; 86901; 88307; A9270; J2405; J2590; J2795; J7120

== ENCOUNTER 2023-02-06 13:00 | Emergency (ER) | payer OTHER, SELFPAY ==
[2023-02-06 13:03] VITALS: BP 155/83; PULSE 86; RESP 18; TEMP 36.3; O2SAT 99
--- NOTE | 2023-02-06 13:30 | ED.DENTAL ---
HPI - Dental/Oral General Chief complaint: Dental/Oral Stated complaint: ear/teeth pain Time Seen by Provider: 02/06/23 13:13 History of Present Illness HPI Narrative: 27-year-old female presents to the emergency room for evaluation of dental pain. Patient states that she has been experiencing left lower and left upper molar pain that radiates into her face and ear. Has been taking Tylenol, ibuprofen, and Orajel with no relief. States her next dental appointment is in April. Related Data Allergies Allergy/AdvReac Type Severity Reaction Status Date / Time No Known Allergies Allergy Verified 02/06/23 13:01 Review of Systems Review of Systems: CONSTITUTIONAL: Denies fever, chills, or sweats. EYES: Denies visual changes, redness, or discharge. ENT: Denies rhinorrhea, congestion, sore throat, or otalgia. CARDIOVASCULAR: Denies chest pain, palpitations, or edema. RESPIRATORY: Denies cough or dyspnea. GASTROINTESTINAL: Denies abdominal pain, nausea, vomiting, or diarrhea. GENITOURINARY: Denies dysuria or hematuria. SKIN: Denies rash or itching. MUSCULOSKELETAL: Denies back pain, joint pain, or myalgia. NEUROLOGIC: Denies headache, numbness, dizziness, or weakness. PSYCHIATRIC: Denies anxiety or depression. COUNT INCLUDES THE [facility] Past Medical History Medical History Abnormal glucose tolerance in Anxiety Constipation Encounter for screening examination for sexually transmitted disease Herpes HSV 2 Incomplete miscarriage 02/10/20 suction d&c Migraines OTC PRN UTI (urinary tract infection) Surgical History Surgical History Hx of tonsillectomy 2003 Family History Family History Other Diabetes mellitus maternal uncle Grandparent Acute myocardial infarction maternal grandmother paternal grandmother Breast cancer paternal grandmother Diabetes mellitus Son Autism Social History Social History Smoking packs per day: 0.5 Smoking cigarettes per day: 10.0 Years smoked: 10 Smoking pack-years: 5.00 Smoking status: Current every day smoker Tobacco type: cigarettes Second hand tobacco smoke exposure: Yes Alcohol intake: never Substance use: former Substance use type: marijuana Last use: last time 03/20/22 Living arrangements: other Additional living arrangements comments: Occupation/Education: other Additional occupation/education comments: stay at home mom Gender identity (if verbalized by the patient): Female Sexual Orientation (if Verbalized by the Patient): Straight or Heterosexual Spiritual care concerns: No Exam Narrative: GENERAL: Well-appearing, well-nourished, no physical limitations, and in no acute distress. HEAD: Normocephalic, atraumatic. EYES: Conjunctivae normal, PERRLA and EOMI. ENT: Widespread periodontal disease. Left lower molar is fractured with obvious dental carry. No notable abscess. CHEST: Clear to auscultation. No respiratory distress. No wheezes rales or rhonchi. HEART: Regular rate and rhythm. No murmur heard. Normal peripheral pulses. ABDOMEN: Soft, nontender, nondistended, normal active bowel sounds. EXTREMITIES: Normal range of motion. No edema. No clubbing or cyanosis SKIN: Warm, dry, no rash. No noted wounds NEURO: No focal deficits. Alert and oriented x3. MAEW. CN's II-XI intact bilaterally, normal gait PSYCH: Cooperative. Normal mood and affect. Course Vital Signs Vital signs: Vital Signs Temperature 36.3 C L 02/06/23 13:03 Pulse Rate 86 02/06/23 13:03 Respiratory Rate 18 02/06/23 13:03 Blood Pressure 155/83 H 02/06/23 13:03 Pulse Oximetry 99 02/06/23 13:03 Oxygen Delivery Room Air 02/06/23 13:03 Temperature 36.3 C L 02/06/23 13:03 Pulse Rate 86 0
[2023-02-06 13:43] VITALS: BP 133/78; PULSE 86; RESP 16; TEMP 36.8; O2SAT 98
== END 2023-02-06 13:46 | disposition home or self-care (01) ==
PROVIDERS: Emergency Provider Nurse Practitioner Family; PCP Family Medicine
DX: K02.9 Dental caries, unspecified (principal); F41.9 Anxiety disorder, unspecified; F17.210 Nicotine dependence, cigarettes, uncomplicated; Z87.440 Personal history of urinary (tract) infections
CPT/HCPCS: 99283

== ENCOUNTER 2025-07-05 18:18 | Emergency (ER) | payer OTHER, SELFPAY ==
[2025-07-05 18:40] VITALS: BP 148/113; PULSE 109; RESP 20; TEMP 36.6; O2SAT 100
--- NOTE | 2025-07-05 20:34 | PC.NURSE ---
no answer for vitals at 2033
== END 2025-07-05 20:34 | disposition left against medical advice (07) ==
LOC: ANHED 21:22
PROVIDERS: PCP Family Medicine
DX: R11.2 Nausea with vomiting, unspecified (principal)
CPT/HCPCS: 99199

== ENCOUNTER 2025-07-07 13:22 | Emergency (ER) | payer OTHER, SELFPAY ==
[2025-07-07 13:22] VITALS: BP 130/87; PULSE 89; RESP 14; TEMP 36.3; O2SAT 99
== END 2025-07-07 14:53 | disposition left against medical advice (07) ==
LOC: ANHED 14:39
PROVIDERS: PCP Family Medicine
DX: R11.2 Nausea with vomiting, unspecified (principal)
CPT/HCPCS: 99199